=== PATIENT | female | born 1985 | race Caucasian/White ===

== ENCOUNTER → 2017-10-19 | Outpatient (CLI) | payer OTHER ==
--- NOTE | 2017-10-19 16:10 | DIAGNOSTIC IMAGING REPORT ---
ULTRASOUND VENOUS DOPPLER LWR EXT BILA CLINICAL HISTORY: Bilateral leg pain COMPARISON STUDY: No previous studies for comparison. FINDINGS: Real-time and color flow Doppler imaging were performed. Flow was seen within the femoral, popliteal and calf veins with no intraluminal thrombus demonstrated. The saphenous vein is patent. IMPRESSION: No evidence of lower extremity DVT. Electronically signed by: Mike Tyson M.D. 10/19/2017 4:09 PM Dictated Date/Time: 10/19/2017 4:09 PM
== END | disposition home or self-care (01) ==
LOC: C.ULTR 15:00
PROVIDERS: ATTEND Internal Medicine
DX: M79.662 Pain in left lower leg (principal)